=== PATIENT | female | born 1975 | race Hispanic/Latino ===

== ENCOUNTER 2020-11-29 19:05 | Emergency (ER) | payer OTHER ==
[2020-11-29 20:41] LABS: Urine Blood NEGATIVE (NEG); Urine Glucose NEGATIVE (NEG); Urine Protein NEGATIVE (NEG)
--- NOTE | 2020-11-29 21:34 | ER ---
Nurse's Notes [facility] Name: Bethany Moreland Age: 45 yrs Sex: Female : 1975 Arrival Date: 11/29/2020 Time: 19:10 Bed Waiting Private MD: Diagnosis: Presentation: 11/29 19:33 Chief complaint: Patient states: i feel like i have UTI, history of recurrent UTI, rr5 burning sensation when I pee, feels weak headache, on and off nausea started last Sunday denies fever, cough colds sore throat. Coronavirus screen: Client denies travel out of the [place] in the last 14 days. At this time, the client does not indicate any symptoms associated with coronavirus-19. Ebola Screen: Patient negative for fever greater than or equal to 101.5 degrees Fahrenheit, and additional compatible Ebola Virus Disease symptoms Patient denies exposure to infectious person. Patient denies travel to an Ebola-affected area in the 21 days before illness onset. Initial Sepsis Screen: Does the patient meet any 2 criteria? No. Patient's initial sepsis screen is negative. Does the patient have a suspected source of infection? No. Patient's initial sepsis screen is negative. Risk Assessment: Do you want to hurt yourself or someone else? Patient reports no desire to harm self or others. Onset of symptoms was November 24, 2020. 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 - Social history:: Smoking status: Patient reports the use of cigarette tobacco products, 4 sticks/day, Patient/guardian denies using alcohol, street drugs. Assessment: 21:20 Reassessment: patient decided she will leave. as stated cannot wait this long. rr5 explained situation and what is happening still she opted to leave. Vital Signs: 19:33 BP 116 / 76; Pulse 52; Resp 19; Temp 98.4; Pulse Ox 99% ; Weight 61.23 kg; Height 4 ft. rr5 9 in. (144.78 cm); Pain 8/10; 19:33 Body Mass Index 29.21 (61.23 kg, 144.78 cm) rr5 ED Course: 19:10 Patient arrived in ED. cl3 19:37 Triage completed. rr5 19:39 Arm band placed on right wrist. rr5 21:13 Urine collected: clean catch specimen, clear. rr5 Administered Medications: No medications were administered Outcome: 21:34 Patient left the ED. rr5 Signatures: Justo Barahona RN RN rr5 Costa Borjas cl3
[2020-11-29 21:51] VITALS: BP 116/76; TEMP 98.4; O2SAT 99
== END 2020-11-29 21:34 | disposition left against medical advice (07) ==
LOC: ER 19:05
DX: N39.0 Urinary tract infection, site not specified (principal); F32.9 Major depressive disorder, single episode, unspecified; F41.9 Anxiety disorder, unspecified; F17.210 Nicotine dependence, cigarettes, uncomplicated; Z53.21 Procedure and treatment not carried out due to patient leaving prior to being seen by health care provider
CPT/HCPCS: 81003; 99282